=== PATIENT | male | born 1970 | race Caucasian/White ===

== ENCOUNTER 2020-01-18 18:13 | Emergency (ER) | payer OTHER ==
[2020-01-18 18:22] VITALS: BP 182/106; PULSE 97; RESP 18; TEMP 98.9
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
== END 2020-01-18 20:10 | disposition home or self-care (01) ==
LOC: EC 18:13
DX: F32.9 Major depressive disorder, single episode, unspecified (principal); S01.01XA Laceration without foreign body of scalp, initial encounter; S50.312A Abrasion of left elbow, initial encounter; G47.30 Sleep apnea, unspecified; Z99.89 Dependence on other enabling machines and devices; Z96.60 Presence of unspecified orthopedic joint implant; Z91.5 Personal history of self-harm; V89.2XXA Person injured in unspecified motor-vehicle accident, traffic, initial encounter; Y92.410 Unspecified street and highway as the place of occurrence of the external cause
CPT/HCPCS: 82075; 99285